=== PATIENT | male | born 1975 | race Two or more races ===

== ENCOUNTER 2024-09-25 17:22 | Inpatient (IN) | payer MEDICAID, OTHER ==
[~2024-09-25] VITALS: Ht 175.3 cm; Wt 86.6 kg
[2024-09-25] MEDS: ONDANSETRON HCL/PF 4 MG/2 ML VIAL IVP ONE (18:00)
[2024-09-25] MEDS: MORPHINE SULFATE INJ 2 MG/ML DISP.SYRIN IV ONE (18:00)
[2024-09-25] MEDS ORDERED: MORPHINE SULFATE INJ 4 MG/ML DISP.SYRIN ONE (18:01)
[2024-09-25] MEDS ORDERED: ONDANSETRON HCL/PF 4 MG/2 ML VIAL ONE (18:01)
[2024-09-25 18:12] LABS: RED BLOOD CELL COUNT(AUTO) 3.64 MIL/uL (4.5-6.0); RED CELL DISTRIBUTION WIDTH 15.4 % (11.5-15.0); WHITE BLOOD COUNT (AUTO) 4.9 K/uL (4.3-11.0)
[2024-09-25 18:26] LABS: CREATINE KINASE, TOTAL 22 U/L (39-308)
[2024-09-25 18:30] VITALS: O2SAT 98
[2024-09-25 18:39] LABS: INR 1.37 (0.91-1.10)
[2024-09-25 18:53] LABS: PLATELET COUNT (AUTO) 36 K/uL (150-450)
[2024-09-25 18:54] LABS: CALCIUM, SERUM 7.7 mg/dL (8.5-10.1); CREATININE 0.5 mg/dL (0.6-1.3); SODIUM SERUM 138 mmol/L (136-145); UREA NITROGEN, BLOOD 6 mg/dL (7-18)
[2024-09-25] MEDS ORDERED: IV NS 0.9% 250 ML IV ONE (19:01)
[2024-09-25] MEDS ORDERED: IOHEXOL-300 100 ML VIAL IV ONE (19:01)
[2024-09-25 19:05] LABS: ASPARTATE AMINOTRANSFERASE 30 U/L (15-37); NT-PRO BNP 80 pg/mL (0-125); TOTAL PROTEIN, SERUM 6.1 g/dL (6.4-8.2)
[2024-09-25 19:08] LABS: ALCOHOL, BLOOD < 3 mg/dL (0-10)
[2024-09-25 19:25] VITALS: O2SAT 99
[2024-09-25 20:21] LABS: EOSINOPHILS % (MANUAL) 2 % (0-4); LYMPHOCYTES % (MANUAL) 13 % (16-48); MONOCYTES % (MANUAL) 18 % (0-11.0); NEUTROPHILS % (MANUAL) 67 (42-76); PLATELET ESTIMATE DECREASED
[2024-09-25 21:30] VITALS: O2SAT 96
[2024-09-25] MEDS ORDERED: ONDANSETRON HCL/PF 4 MG/2 ML VIAL IVP PRN (21:30)
[2024-09-25] MEDS ORDERED: MAGNESIUM HYDROXIDE 30 ML UDC PO PRN (21:30)
[2024-09-25] MEDS ORDERED: ACETAMINOPHEN 325 MG TABLET PO PRN (21:30)
[2024-09-25] MEDS ORDERED: Z GUARD REMEDY 4 OZ OINT TP PRN (21:30)
[2024-09-25] MEDS ORDERED: MAG HYDROX/AL HYDROX/SIMETH 30 ML UDC PO PRN (21:30)
[2024-09-25 23:30] VITALS: O2SAT 99
[2024-09-25 23:35] VITALS: O2SAT 98
[2024-09-26] VITALS (21 sets, daily range): BP systolic 103–145; BP diastolic 57–91; TEMP 98–98.9; O2SAT 89–99
[2024-09-26] MEDS: FUROSEMIDE 40 MG/4 ML VIAL IV ONE ×2 (01:24→06:09)
[2024-09-26] MEDS: LEVOFLOXACIN 500 MG /D5W 100ML 100 ML IV ONE (01:48)
[2024-09-26] MEDS: LEVOFLOXACIN 500 MG /D5W 100ML 500 MG in PREMIX 1 EA IV SCH (02:21)
[2024-09-26 04:33] LABS: RED BLOOD CELL COUNT(AUTO) 4.14 MIL/uL (4.5-6.0); RED CELL DISTRIBUTION WIDTH 15.7 % (11.5-15.0); WHITE BLOOD COUNT (AUTO) 6.6 K/uL (4.3-11.0)
[2024-09-26 04:59] LABS: ASPARTATE AMINOTRANSFERASE 37.0 U/L (15-37); CALCIUM, SERUM 7.7 mg/dL (8.5-10.1); CREATININE 0.5 mg/dL (0.6-1.3); PHOSPHORUS 4.3 mg/dL (2.5-4.9); SODIUM SERUM 138.0 mmol/L (136-145); TOTAL PROTEIN, SERUM 6.8 g/dL (6.4-8.2); UREA NITROGEN, BLOOD 5.0 mg/dL (7-18)
[2024-09-26 05:09] LABS: PLATELET COUNT (AUTO) 29 K/uL (150-450)
[2024-09-26 06:25] LABS: BASOPHILS % (MANUAL) 0 % (0.0-2.0); EOSINOPHILS % (MANUAL) 3 % (0-4); LYMPHOCYTES % (MANUAL) 10 % (16-48); MONOCYTES % (MANUAL) 13 % (0-11.0); NEUTROPHILS % (MANUAL) 74 (42-76); PLATELET ESTIMATE DECREASED
[2024-09-26] MEDS: POTASSIUM CHLORIDE 20 MEQ TAB.PRT.SR PO SCH ×2 (09:27→12:44)
[2024-09-26 12:19] LABS: ABG BASE EXCESS -2.1 mmol/L (-2.0-3.0); ABG OXYGEN SATURATION 93.6 % (94.0-98.0); ABG PCO2 35.1 mmHg (35.0-48.0); ABG PH 7.412 (7.350-7.450); ABG PO2 75.3 mmHg (83.0-108.0); ABG TOTAL HEMOGLOBIN 13.4 G/dL (13.5-17.5); FLOW, BLOOD GAS 60.00 L/min (0.00-30.00); SITE, ABG RIGHT RADIAL
[2024-09-26 12:19] LABS: ABG BASE EXCESS 1.2 mmol/L (-2.0-3.0); ABG OXYGEN SATURATION 95.5 % (94.0-98.0); ABG PCO2 36.2 mmHg (35.0-48.0); ABG PH 7.454 (7.350-7.450); ABG PO2 81.3 mmHg (83.0-108.0); ABG TOTAL HEMOGLOBIN 14.2 G/dL (13.5-17.5); SET RATE, BG 20.0; SITE, ABG LEFT BRACHIAL
[2024-09-26] MEDS: FUROSEMIDE 40 MG/4 ML VIAL IV SCH (12:44)
[2024-09-26] MEDS: HYDROCODONE/APAP 5/325MG TABLET PO PRN (13:20)
[2024-09-26 16:17] LABS: ABG BASE EXCESS -1.6 mmol/L (-2.0-3.0); ABG OXYGEN SATURATION 95.7 % (94.0-98.0); ABG PCO2 30.2 mmHg (35.0-48.0); ABG PH 7.464 (7.350-7.450); ABG PO2 84.2 mmHg (83.0-108.0); ABG TOTAL HEMOGLOBIN 13.1 G/dL (13.5-17.5); FRACTIONATED INSPIRED OXYGEN 100.0 %; SITE, ABG RIGHT RADIAL
[2024-09-27 04:00] VITALS: BP_SYST 100; BP_SYST 114; BP_DIAS 63; BP_DIAS 73; TEMP 98.8; O2SAT 88; O2SAT 92
[2024-09-27 07:37] LABS: CALCIUM, SERUM 7.6 mg/dL (8.5-10.1); CREATININE 0.5 mg/dL (0.6-1.3); SODIUM SERUM 139.0 mmol/L (136-145); UREA NITROGEN, BLOOD 9.0 mg/dL (7-18)
[2024-09-27 07:42] LABS: RED BLOOD CELL COUNT(AUTO) 3.38 MIL/uL (4.5-6.0); RED CELL DISTRIBUTION WIDTH 15.2 % (11.5-15.0); WHITE BLOOD COUNT (AUTO) 9.9 K/uL (4.3-11.0)
[2024-09-27 08:00] VITALS: BP 99/58; TEMP 98.1; O2SAT 92
[2024-09-27 08:01] LABS: PLATELET COUNT (AUTO) 39 K/uL (150-450)
[2024-09-27] MEDS ORDERED: FURO-144 PO (08:09)
[2024-09-27] MEDS ORDERED: POTA10TA PO (08:10)
[2024-09-27] MEDS ORDERED: LEVO500T90 PO (08:10)
[2024-09-27] MEDS ORDERED: ALBU2.5V38 IH (08:13)
[2024-09-27 09:04] LABS: EOSINOPHILS % (MANUAL) 2 % (0-4); LYMPHOCYTES % (MANUAL) 14 % (16-48); MONOCYTES % (MANUAL) 11 % (0-11.0); NEUTROPHILS % (MANUAL) 73 (42-76); PLATELET ESTIMATE DECREASED
== END 2024-09-27 17:45 | disposition left against medical advice (07) | DRG 133 ==
LOC: ER 17:48 → MEDSG1 09-26 00:01 → ICU 09-26 00:29 → MEDSG1 09-26 19:05
PROVIDERS: ADMIT Nurse Practitioner Acute Care; ATTEND Internal Medicine
PROC: 5A09357 Assistance with Respiratory Ventilation, Less than 24 Consecutive Hours, Continuous Positive Airway Pressure (ICD-10-PCS; principal; 2024-09-26)
DX: J96.01 Acute respiratory failure with hypoxia (principal); I50.33 Acute on chronic diastolic (congestive) heart failure; I42.9 Cardiomyopathy, unspecified; J18.9 Pneumonia, unspecified organism; K76.6 Portal hypertension; D63.8 Anemia in other chronic diseases classified elsewhere; D69.59 Other secondary thrombocytopenia; J44.1 Chronic obstructive pulmonary disease with (acute) exacerbation; J84.10 Pulmonary fibrosis, unspecified; I11.0 Hypertensive heart disease with heart failure; I25.10 Atherosclerotic heart disease of native coronary artery without angina pectoris; Z87.01 Personal history of pneumonia (recurrent); Z71.6 Tobacco abuse counseling; Z99.81 Dependence on supplemental oxygen; E87.6 Hypokalemia; K70.30 Alcoholic cirrhosis of liver without ascites; R79.1 Abnormal coagulation profile; F17.210 Nicotine dependence, cigarettes, uncomplicated; E78.5 Hyperlipidemia, unspecified; J96.21 Acute and chronic respiratory failure with hypoxia; E80.6 Other disorders of bilirubin metabolism; F10.20 Alcohol dependence, uncomplicated; R74.01 Elevation of levels of liver transaminase levels; Z91.199 Patient's noncompliance with other medical treatment and regimen due to unspecified reason; M79.672 Pain in left foot; M79.671 Pain in right foot; R60.9 Edema, unspecified
CPT/HCPCS: 36415; 36600; 70450-TC; 71045-TC; 72125-TC; 73610-TC; 80048-TC; 80053-TC; 80076-TC; 82550-TC; 82803-TC; 82962-TC; 83735-TC; 83880; 84100-TC; 84484-TC; 85027-TC; 85378-TC; 85730-TC; 87081-TC; 93307-TC; 93970-TC; 94660; 94799-TC; 97110-TC; 97116-TC; 97530-TC; 99082-TC; A4216; A4223; G0378; G0480; J1938; J1956; J2270; J2405; J2919; J7050; Q9967

== ENCOUNTER 2024-12-25 18:58 | Inpatient (IN) | payer MEDICAID ==
[~2024-12-25] VITALS: Ht 172.7 cm; Wt 89.8 kg
[~2024-12-25 18:58] MED LIST: ALBU2.5V38 IH; FURO-144 PO; LEVO500T90 PO; POTA10TA PO
[2024-12-25] MEDS ORDERED: Magnesium 1GM/D5W 100ML PREMIX 100 ML IV ONE ×2 (19:15→20:12)
[2024-12-25] MEDS: Magnesium 1GM/D5W 100ML PREMIX 200 ML IV ONE (19:15)
[2024-12-25] MEDS: ALBUTEROL FS 2.5 MG/3 ML VIAL.NEB NEB ONE (19:45)
[2024-12-25] MEDS: IPRATROPIUM NEB FS 0.5 MG/2.5 ML AMPUL.NEB NEB ONE (19:45)
[2024-12-25] MEDS ORDERED: ALBUTEROL FS 2.5 MG/3 ML VIAL.NEB ONE (19:52)
[2024-12-25] MEDS ORDERED: IPRATROPIUM NEB FS 0.5 MG/2.5 ML AMPUL.NEB ONE (19:52)
[2024-12-25 19:56] LABS: RED BLOOD CELL COUNT(AUTO) 4.59 MIL/uL (4.5-6.0); RED CELL DISTRIBUTION WIDTH 17.3 % (11.5-15.0); WHITE BLOOD COUNT (AUTO) 5.2 K/uL (4.3-11.0)
[2024-12-25 19:57] LABS: PLATELET COUNT (AUTO) 76 K/uL (150-450)
[2024-12-25 20:07] LABS: CALCIUM, SERUM 8.4 mg/dL (8.5-10.1); CREATININE 0.8 mg/dL (0.6-1.3); SODIUM SERUM 141 mmol/L (136-145); UREA NITROGEN, BLOOD 5 mg/dL (7-18)
[2024-12-25 20:20] LABS: NT-PRO BNP 64 pg/mL (0-125)
[2024-12-25] MEDS ORDERED: MORPHINE SULFATE INJ 4 MG/ML DISP.SYRIN ONE (20:40)
[2024-12-25] MEDS: MORPHINE SULFATE INJ 2 MG/ML DISP.SYRIN IV ONE (20:44)
[2024-12-25 20:58] LABS: EOSINOPHILS % (MANUAL) 4 % (0-4); LYMPHOCYTES % (MANUAL) 12 % (16-48); MONOCYTES % (MANUAL) 5 % (0-11.0); NEUTROPHILS % (MANUAL) 79 (42-76); PLATELET ESTIMATE DECREASED
[2024-12-25 21:13] LABS: ABG BASE EXCESS -2.9 mmol/L (-2.0-3.0); ABG OXYGEN SATURATION 98.3 % (94.0-98.0); ABG PCO2 26.8 mmHg (35.0-48.0); ABG PH 7.469 (7.350-7.450); ABG PO2 112.6 mmHg (83.0-108.0); ABG TOTAL HEMOGLOBIN 15.5 G/dL (13.5-17.5); SET RATE, BG 20.0; SITE, ABG RIGHT RADIAL
[2024-12-26] VITALS (21 sets, daily range): BP systolic 123–147; BP diastolic 60–92; TEMP 98.1–99; O2SAT 88–100
[2024-12-26] MEDS ORDERED: ACETAMINOPHEN 650 MG/20.3 ML UDC NG PRN (00:30)
[2024-12-26] MEDS ORDERED: ONDANSETRON HCL/PF 4 MG/2 ML VIAL IV PRN (00:30)
[2024-12-26] MEDS ORDERED: IPRATROPIUM NEB FS 0.5 MG/2.5 ML AMPUL.NEB NEB PRN (00:30)
[2024-12-26] MEDS: ENOXAPARIN SODIUM 40 MG/0.4 ML DISP.SYRIN SQ SCH (00:30)
[2024-12-26] MEDS ORDERED: ALBUTEROL FS 2.5 MG/3 ML VIAL.NEB NEB PRN (00:30)
[2024-12-26] MEDS: MORPHINE SULFATE INJ 4 MG/ML DISP.SYRIN IV PRN (01:11)
[2024-12-26] MEDS: IPRATROPIUM NEB FS 0.5 MG/2.5 ML AMPUL.NEB NEB SCH (03:24)
[2024-12-26] MEDS: ALBUTEROL FS 2.5 MG/3 ML VIAL.NEB NEB SCH (03:24)
[2024-12-26 05:02] LABS: PLATELET COUNT (AUTO) 64 K/uL (150-450); RED BLOOD CELL COUNT(AUTO) 4.45 MIL/uL (4.5-6.0); RED CELL DISTRIBUTION WIDTH 17.7 % (11.5-15.0); WHITE BLOOD COUNT (AUTO) 4.5 K/uL (4.3-11.0)
[2024-12-26 05:18] LABS: CALCIUM, SERUM 8.2 mg/dL (8.5-10.1); CREATININE 0.7 mg/dL (0.6-1.3); SODIUM SERUM 138.0 mmol/L (136-145); UREA NITROGEN, BLOOD 5.0 mg/dL (7-18)
[2024-12-26 06:41] LABS: LYMPHOCYTES % (MANUAL) 6 % (16-48); MONOCYTES % (MANUAL) 4 % (0-11.0); NEUTROPHILS % (MANUAL) 90 (42-76); PLATELET ESTIMATE DECREASED
[2024-12-26] MEDS: CEFTRIAXONE 1 G in IV D5W 50 ML IV SCH (09:00)
[2024-12-26] MEDS: AZITHROMYCIN 500 MG in IV D5W 250 ML IV SCH (10:11)
[2024-12-26] MEDS: FAMOTIDINE/PF INJ 20 MG/2 ML VIAL IV SCH (10:11)
[2024-12-26] MEDS: CLOTRIMAZOLE 1% 15 GM TUBE TP SCH ×2 (10:12→17:49)
[2024-12-26] MEDS: MORPHINE SULFATE INJ 2 MG/ML DISP.SYRIN IV PRN (10:39)
[2024-12-27] VITALS (14 sets, daily range): BP systolic 107–130; BP diastolic 69–79; TEMP 97.9–98.2; O2SAT 87–99
[2024-12-27 06:45] LABS: PLATELET COUNT (AUTO) 74 K/uL (150-450); RED BLOOD CELL COUNT(AUTO) 4.51 MIL/uL (4.5-6.0); RED CELL DISTRIBUTION WIDTH 17.6 % (11.5-15.0); WHITE BLOOD COUNT (AUTO) 16.3 K/uL (4.3-11.0)
[2024-12-27 07:09] LABS: CALCIUM, SERUM 8.2 mg/dL (8.5-10.1); CREATININE 0.7 mg/dL (0.6-1.3); SODIUM SERUM 141.0 mmol/L (136-145); UREA NITROGEN, BLOOD 9.0 mg/dL (7-18)
[2024-12-27 12:22] LABS: LYMPHOCYTES % (MANUAL) 3 % (16-48); MONOCYTES % (MANUAL) 4 % (0-11.0); NEUTROPHILS % (MANUAL) 93 (42-76); PLATELET ESTIMATE DECREASED
[2024-12-28] VITALS (7 sets, daily range): BP systolic 113–124; BP diastolic 67–75; TEMP 97.7–98; O2SAT 93–96
[2024-12-28 06:30] LABS: PLATELET COUNT (AUTO) 72 K/uL (150-450); RED BLOOD CELL COUNT(AUTO) 4.21 MIL/uL (4.5-6.0); RED CELL DISTRIBUTION WIDTH 17.3 % (11.5-15.0); WHITE BLOOD COUNT (AUTO) 10.6 K/uL (4.3-11.0)
[2024-12-28 06:40] LABS: CALCIUM, SERUM 7.8 mg/dL (8.5-10.1); CREATININE 0.8 mg/dL (0.6-1.3); SODIUM SERUM 142.0 mmol/L (136-145); UREA NITROGEN, BLOOD 11.0 mg/dL (7-18)
[2024-12-28 08:23] LABS: LYMPHOCYTES % (MANUAL) 5 % (16-48); MONOCYTES % (MANUAL) 3 % (0-11.0); NEUTROPHILS % (MANUAL) 92 (42-76); PLATELET ESTIMATE DECREASED
[2024-12-28] MEDS: MORPHINE SULFATE INJ 4 MG/ML DISP.SYRIN IV PRN (09:20)
[2024-12-28] MEDS ORDERED: HYDROCODONE/APAP 5/325MG TABLET PO PRN (11:30)
== END 2024-12-28 13:59 | disposition left against medical advice (07) | DRG 140 ==
LOC: ER 19:49 → ICU 22:53 → MEDSG1 12-26 13:04
PROVIDERS: ADMIT Internal Medicine; ATTEND Internal Medicine
PROC: 5A09357 Assistance with Respiratory Ventilation, Less than 24 Consecutive Hours, Continuous Positive Airway Pressure (ICD-10-PCS; principal; 2024-12-25)
DX: J44.1 Chronic obstructive pulmonary disease with (acute) exacerbation (principal); J96.21 Acute and chronic respiratory failure with hypoxia; J84.112 Idiopathic pulmonary fibrosis; I11.0 Hypertensive heart disease with heart failure; I50.9 Heart failure, unspecified; I25.10 Atherosclerotic heart disease of native coronary artery without angina pectoris; E78.5 Hyperlipidemia, unspecified; L60.3 Nail dystrophy; Z87.891 Personal history of nicotine dependence; Z99.81 Dependence on supplemental oxygen; K74.60 Unspecified cirrhosis of liver; Z20.822 Contact with and (suspected) exposure to COVID-19
CPT/HCPCS: 36415; 71045-TC; 80048-TC; 83880; 84484-TC; 85027-TC; 87081-TC; 93307-TC; 93970-TC; 94761-TC; 94799-TC; A4223; G0378; J0456; J0696; J1308; J2270; J2919; J3475; J7050; J7060